=== PATIENT | female | born 1960 | race Caucasian/White ===

== ENCOUNTER 2017-05-23 08:25 | Day surgery (SDC) | payer BC, OTHER ==
[2017-05-23] MEDS ORDERED: MIDAZOLAM HCL 2MG/2ML VIAL IV ONE (14:00)
[2017-05-23] MEDS ORDERED: LIDOCAINE 2% MDV (20MG/ML) 20ML VIAL IV ONE (14:00)
[2017-05-23] MEDS ORDERED: PROPOFOL 10 MG/ML VIAL IV ONE (14:00)
--- NOTE | 2017-05-25 12:10 | Operative Note ---
DATE OF SURGERY: 05/23/2017 OPERATION: COLONOSCOPY to the cecum. INDICATION: Colorectal cancer screening. The patient has no complaints other than abdominal bloating. Her stools are regular. ANESTHESIA: Intravenous sedation was administered by the department of anesthesiology and included Diprivan titrated to effect. PROCEDURE: Following informed consent from this alert individual including a discussion of the risks and benefits of the procedure and an opportunity for the patient to ask questions, the patient was in the left lateral decubitus position. A digital rectal examination was performed. No abnormalities were noted. Following this, the Olympus [id number] video colonoscope was inserted into the rectum without resistance. The rectal mucosa had a normal appearance with normal folds and distensibility. The colonoscope was advanced up through the colon to the level of the cecum without much difficulty. Throughout the bowel the mucosa appeared normal, the folds were normal, and the bowel was fairly well distensible. The cecum was defined by noting the appendiceal orifice and ileocecal valve. From the base of the cecum, the colonoscope was then slowly withdrawn back through the bowel, reexamining the mucosa upon withdrawal. The colon preparation was good. No polyps, tumors, ulcerations, or erosions were noted. In the rectum, retroflexion was then accomplished following air insufflation and the distal rectum examined from above demonstrated small internal hemorrhoids. The endoscope was straightened and removed. The patient tolerated the procedure well and was returned to the recovery area in stable condition. IMPRESSION: Small internal hemorrhoids, otherwise unremarkable colonoscopy to the cecum. RECOMMENDATIONS: The patient was advised to have recheck colonoscopy in 10 years' time or sooner should problems arise. For abdominal bloating and gas, she can utilize Gas-X, try FODMAP diet, or try Probiotic. Followup will be with Dr. Marcin Schwartz. As always, thank you for allowing me to participate in the care of your patient. CC: Dr. Marcin WISDOM
== END 2017-05-23 11:00 | disposition home or self-care (01) ==
LOC: HOP 08:25
PROVIDERS: ATTEND Internal Medicine Gastroenterology
DX: Z12.11 Encounter for screening for malignant neoplasm of colon (principal); K64.8 Other hemorrhoids; J45.909 Unspecified asthma, uncomplicated
CPT/HCPCS: 00810; G0121

== ENCOUNTER 2017-12-30 20:41 | Observation (INO) | payer OTHER ==
--- NOTE | 2017-12-30 20:58 | Emergency Department Record ---
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 The symptoms came on suddenly and then lasted about an hour when it then slowly resolved. Her symptoms now are much improved. She does have a hx of asthma and her only cardiac risk factor is her mother with significant CAD in her 50's.. The patient did just have a neg Stress Thallium test yesterday at [facility] due to having some chest pains last summer. Additionally she did have a neg heart cath for similar issues about 8 years ago. She does have a family hx in her brothers of Afib. Complaint: Chest pain Onset/Timin -: Hour(s) Onset: During exertion Pain Location: Other Pain Radiation: None Severity scale (1-10): 7 Quality: Tightness Consistency: Constant Treatments Prior to Arrival: None - Related Data Home Medications Medication Instructions Recorded Confirmed Last Taken Beclomethasone Dipropionate [Qvar 2 inh IH BID 12/30/17 12/30/17 12/30/17 80Mcg/100 Actuat Inhaler] Trazodone HCl 50 mg PO QHS 12/30/17 12/30/17 Unknown Previous Rx's Medication Instructions Recorded Albuterol Sulfate [Ventolin Hfa] 1 - 2 puff IH .EVERY 4-6 HRS PRN 04/30/15 #1 inhaler Allergies Allergy/AdvReac Type Severity Reaction Status Date / Time dipyridamole AdvReac VOMITING Verified 12/30/17 20:46 [From Persantine] Travel Screening - Travel/Exposure Within Last 30 Days Have you traveled within the last 30 days?: No - Travel Symptoms Symptom Screening: None Review of Systems Constitutional: Denies: Chills, Fever Eyes: Denies: Eye discharge ENT: Denies: Congestion Respiratory: Denies: Cough, Dyspnea Past Medical History - SOCIAL HISTORY Smoking Status: Never smoker - RESPIRATORY Hx Respiratory Disorders: Yes Hx Asthma: Yes (well controlled) - CARDIOVASCULAR Hx Cardio Disorders: Yes Hx Chest Pain: Yes (05/2017 admission) - NEURO Hx Neuro Disorders: Yes Hx of Migraines: Yes Hx Seizures: Yes (29 yrs ago-during ) - GI Hx GI Disorders: Yes Hx Abdominal Pain: Yes (upper abd pain-occas) Hx Reflux: Yes (few yrs ago) Hx Irritable Bowel: Yes (20 yrs ago) Hx Wt Loss/Wt Gain: Yes (gain 18 lbs in 3 mos) - Hx Genitourinary Disorders: No - ENDOCRINE Hx Endocrine Disorders: No - MUSCULOSKELETAL Hx Musculoskeletal Disorders: Yes - PSYCH Hx Psych Problems: No - HEMATOLOGY/ONCOLOGY Hx Hematology/Oncology Disorders: No Family Medical History Any Significant Family History?: Yes Hx Cancer: Brother/Sister *Cancer Comment: brother-bone ca, brother-prostate ca, brother-leukemia Hx Heart Disease: Mother, Brother/Sister Hx Stroke: Mother Physical Exam - General General Appearance: Alert, Oriented x3, Cooperative, No acute distress - Head Head exam: Atraumatic, Normocephalic, Normal inspection - Eye Eye exam: Normal appearance, PERRL, EOMI - ENT Throat exam: Normal inspection. negative: Tonsillar erythema, Tonsillar exudate - Neck Neck exam: Normal inspection, Full ROM. negative: Tenderness - Respiratory Respiratory exam: Normal lung sounds bilaterally. negative: Respiratory distress - Cardiovascular Cardiovascular Exam: Regular rate, Normal rhythm, Normal heart sounds - GI/Abdominal GI/Abdominal exam: Soft, Normal bowel sounds. negative: Tenderness - Extremities Extremities exam: Normal inspection, Full ROM, Normal capillary refill. negative: Tenderness - Neurological Neurological exam: Alert. negative: Motor sensory deficit Course Vital Signs 12/30/17 20:49 Pulse Rate 78 Respiratory 14 Rate Blood Pressure 135/107 Pulse Ox 95 - Reevaluation(s) Reevaluation #1: The patient is doing very well at this time. She is resting comfortably and denies any pain or discomfort. I did review her nuclear stress test from yesterday and it was normal. 12/30/17 21:46 Reevaluation #2: The patient is doing well. I did explain to her that her tests are all WNL's. Due to the nature of the symptoms I do feel she could have gone into Afib or SVT. We will admit the patient overnight for monitoring and repeat cardiac enzymes. 12/30/17 22:07 Medical Decision Making - Data Complexity MDM Data: Labs Ordered and/or Reviewed, X-Ray Ordered and/or Reviewed, EKG Ordered and/or Reviewed - Lab Data Result diagrams: 12/30/17 21:08 12/30/17 21:08 - EKG Data -: EKG Interpreted by Me EKG: No Acute Changes, Normal EKG - Radiology Data Radiology results: Report reviewed (CXR: No acute process per rad.) Disposition Disposition: Admit Clinical Impression: Chest pain Qualifiers: Chest pain type: unspecified Qualified Code(s): R07.9 - Chest pain, unspecified Disposition: Still a Patient at [facility] Decision to Admit: Admit from ER Decision to Admit Date: 12/30/17 Decision to Admit Time: 22:09 Accepting Physician: Branodn Time Discussed w/Accepting Physician: 22:09 Condition: (2) Stable Instructions: Chest Pain (ED) Referrals: [facility] Specialty Clinics [Provider Group] Forms: Patient Portal Access Time of Disposition: 22:09 Quality - Quality Measures Quality Measures: N/A - Blood Pressure Screening View Details: Yes Does Patient Have Any of the Following: No Blood Pressure Classification: Hypertensive Reading Systolic Measurement: 135 Diastolic Measurement: 107 Screening for High Blood Pressure: < First Hypertensive BP, F/U Documented > [ G8950] First Hypertensive Follow-up Interventions: Referral to alternative/primary care provider.
[2017-12-30 21:13] LABS: BASO % 0.6 % (0-6); EOS % 6.4 % (0-6); GRAN % 54.1 % (47-80); HEMATOCRIT 40.6 % (35.0-47.0); HEMOGLOBIN 13.4 gm/dl (11.6-16.0); MEAN CELL VOLUME 90.8 fl (81-97); MEAN PLATELET VOLUME 10.2 fl (7.4-10.4); MONO % 12.9 % (0-9); PLATELET COUNT 267 K/uL (130-400); RED BLOOD COUNT 4.47 M/uL (3.80-5.40); RED CELL DISTRIBUTION WIDTH 12.7 % (11.5-14.5); WHITE BLOOD COUNT W/O DIFF 7.2 K/uL (4.2-12.2)
[2017-12-30 21:23] LABS: BLOOD UREA NITROGEN 13 mg/dL (6-20); CREATININE 0.5 mg/dL (0.5-0.9); EST GLOMERULAR FILTRATION RATE > 60 mL/min
[2017-12-30 21:26] LABS: GLUCOSE,RANDOM 110 mg/dL (74-109)
[2017-12-30 21:29] LABS: CREATINE PHOSPHOKINASE 61 U/L (26-192)
[2017-12-30 21:30] LABS: CKMB 1.3 ng/mL (<3.77)
[2017-12-30] MEDS ORDERED: TRAZODONE 50 MG TABLET PO SCH (22:00)
[2017-12-30] MEDS ORDERED: ASPIRIN 325 MG TABLET PO ONE (22:09)
[2017-12-30] MEDS ORDERED: ALBUTEROL HFA 8 GM INHALER INH PRN (22:19)
[2017-12-30] MEDS ORDERED: ACETAMINOPHEN 325 MG TAB PO PRN (22:47)
[2017-12-30] MEDS ORDERED: ZOLPIDEM TARTRATE 5 MG TABLET PO PRN (22:49)
[2017-12-31 03:58] LABS: CKMB 1.1 ng/mL (<3.77)
[2017-12-31] MEDS ORDERED: ARNUITY (FLUTICASONE FUROATE) 100MCG INH INH SCH (10:00)
[2017-12-31] MEDS ORDERED: ASPIRIN 325 MG TAB ENTERIC-COATED PO SCH (10:00)
--- NOTE | 2017-12-31 11:15 | History & Physical ---
History of Present Illness - Date of Service Date of Service for History & Physical: 12/31/17 - History of Present Illness Admitting Diagnosis: 1. Chest Pain, R/O Mi. History of Present Illness: Mrs. Siu is a 57 year-old female who presented to the ED on 12/30/17 with c/o developing palpitations and chest discomfort with mild SOB about 3 hours prior while working at a [employer]. The symptoms came on suddenly and then lasted about an hour when it then slowly resolved. Her symptoms were much improved upon presenting to the ED. She does have a hx of asthma and her only cardiac risk factor is her mother with significant CAD in her 50's. The patient did just have a neg Stress Thallium test on 12/29/17 at [facility] due to having some chest pains last summer. Additionally, she did have a neg heart cath for similar issues about 8 years ago. She does have a family hx in her brothers of Afib. In the ED, her vital signs were stable. EKG showed normal sinus rhythm and was negative for any acute ST changes. Her chest x-ray was negative for acute process. CBC and CMP were unremarkable. Nuclear stress test was reviewed by Dr. Delvalle. D-dimer was wnl, CK-MB and troponins were negative for elevation. Based on pt's symptomss, she could have gone into Afib or SVT and she was admitted for observation with cardiac monitoring and repeat cardiac enzymes. 12/31/17 1100: Pt. is sitting up in bed and resting comfortable. She denies any chest pain and palpitations and she is in no distress. She states that she has not experienced any palpitations, SOB, or chest discomfort since prior to coming to the ED. Will plan to monitor last set of serial cardiac enzymes and discharge home if labs are normal and if pt remains in NSR on potline monitor. She should f/u with her PCP within 3-5 days and consider holter monitor outpatient. Travel Screening - Travel/Exposure Within Last 30 Days Have you traveled within the last 30 days?: No - Travel/Exposure Within Last Year Have you traveled outside the [place] in the last year?: No - Additonal Travel Details Have you been exposed to anyone with a communicable illness?: No - Travel Symptoms Symptom Screening: None Review of Systems Constitutional: Denies: Chills, Fever Eyes: Denies: Eye discharge ENT: Denies: Congestion Respiratory: Denies: Cough, Dyspnea Cardiovascular: Reports: As per HPI. Denies: Arrhythmia, Chest pain, Dyspnea on exertion, Edema, Murmurs, Orthopnea, Palpitations, Paroxysmal nocturnal dyspnea, Rheumatic Fever, Syncope Endocrine: Reports: As per HPI. Denies: Fatigue, Heat or cold intolerance, Polydipsia, Polyuria Gastrointestinal: Reports: As per HPI. Denies: Abdominal pain, Constipation, Diarrhea, Hematemesis, Hematochezia, Melena, Nausea, Vomiting Genitourinary: Reports: As per HPI. Denies: Abnormal menses, Discharge, Dyspareunia, Dysuria, Frequency, Hematuria, Incontinence, Retention, Urgency Musculoskeletal: Reports: As per HPI. Denies: Arthralgia, Back pain, Gout, Joint swelling, Myalgia, Neck pain Skin: Reports: As per HPI. Denies: Bruising, Change in color, Change in hair/ nails, Lesions, Pruritus, Rash Neurological: Reports: As per HPI. Denies: Abnormal gait, Confusion, Headache, Numbness, Paresthesias, Seizure, Tingling, Tremors, Vertigo, Weakness Psychiatric: Reports: As per HPI. Denies: Anxiety, Auditory hallucinations, Depression, Homicidal thoughts, Suicidal thoughts, Visual hallucinations Hematological/Lymphatic: Reports: As per HPI. Denies: Anemia, Blood Clots, Easy bleeding, Easy bruising, Swollen glands Past Medical History - SOCIAL HISTORY Smoking Status: Never smoker - RESPIRATORY Hx Respiratory Disorders: Yes Hx Asthma: Yes (well controlled) - CARDIOVASCULAR Hx Cardio Disorders: Yes Hx Chest Pain: Yes (05/2017 admission) - NEURO Hx Neuro Disorders: Yes Hx of Migraines: Yes Hx Seizures: Yes (29 yrs ago-during ) - GI Hx GI Disorders: Yes Hx Abdominal Pain: Yes (upper abd pain-occas) Hx Reflux: Yes (few yrs ago) Hx Irritable Bowel: Yes (20 yrs ago) Hx Wt Loss/Wt Gain: Yes (gain 18 lbs in 3 mos) - Hx Genitourinary Disorders: No - ENDOCRINE Hx Endocrine Disorders: No - MUSCULOSKELETAL Hx Musculoskeletal Disorders: Yes - PSYCH Hx Psych Problems: No - HEMATOLOGY/ONCOLOGY Hx Hematology/Oncology Disorders: No Family Medical History Any Significant Family History?: Yes Hx Cancer: Brother/Sister *Cancer Comment: brother-bone ca, brother-prostate ca, brother-leukemia Hx Heart Disease: Mother, Brother/Sister Hx Stroke: Mother H&P Meds/Allergies - Allergies Allergies: Allergies Allergy/AdvReac Type Severity Reaction Status Date / Time dipyridamole AdvReac VOMITING Verified 12/30/17 20:46 [From Persantine] - Home Medications Home Medications Medication Instructions Recorded Confirmed Last Taken Beclomethasone Dipropionate [Qvar 2 inh IH BID 12/30/17 12/30/17 12/30/17 80Mcg/100 Actuat Inhaler] Trazodone HCl 50 mg PO QHS 12/30/17 12/30/17 Unknown Previous Rx's Medication Instructions Recorded Albuterol Sulfate [Ventolin Hfa] 1 - 2 puff IH .EVERY 4-6 HRS PRN 04/30/15 #1 inhaler - Active Medications Active Medications: Current Medications Acetaminophen (Tylenol 325mg) 650 mg PO Q6H PRN PRN Reason: PAIN/TEMP Albuterol Sulfate (Ventolin Hfa) 1 - 2 puff INH RESP.Q4H PRN PRN Reason: COUGH/WHEEZING Aspirin (Ecotrin (Ec)) 325 mg PO DAILY [facility] Last Admin: 12/31/17 09:55 Dose: 325 mg Trazodone HCl (Desyrel) 50 mg PO QHS [facility] Last Admin: 12/30/17 23:03 Dose: 50 mg Zolpidem Tartrate (Ambien) 10 mg PO QHS PRN PRN Reason: INSOMNIA Physical Exam - Vital Signs Vital Signs: Vital Signs - Last 24 Hrs Temp Pulse Pulse Resp BP Pulse Ox 12/31/17 08:00 97.9 F 89 18 118/72 98 12/31/17 04:19 97.7 F 61 18 111/81 97 12/30/17 22:50 70 18 12/30/17 22:30 97.6 F 70 18 117/75 99 - General General Appearance: Alert, Oriented x3, Cooperative, No acute distress Limitations: No limitations - Head Head exam: Atraumatic, Normocephalic, Normal inspection - Eye Eye exam: Normal appearance, PERRL, EOMI - ENT Throat exam: Normal inspection. negative: Tonsillar erythema, Tonsillar exudate - Neck Neck exam: Normal inspection, Full ROM. negative: Tenderness - Respiratory Respiratory exam: Normal lung sounds bilaterally. negative: Respiratory distress - Cardiovascular Cardiovascular Exam: Regular rate, Normal rhythm, Normal heart sounds - GI/Abdominal GI/Abdominal exam: Soft, Normal bowel sounds. negative: Tenderness - Extremities Extremities exam: Normal inspection, Full ROM, Normal capillary refill. negative: Tenderness - Neurological Neurological exam: Alert. negative: Motor sensory deficit Results - Labs Result Diagrams: 12/30/17 21:08 12/30/17 21:08 Labs Last 24 Hours: Laboratory Results - last 24 hr 12/31/17 02:15 CK-MB (CK-2) 1.1 Troponin T < 0.010 - Imaging and Cardiology Chest x-ray Status: Image reviewed VTE H&P Assessment - Risk for VTE Risk for VTE: Yes Risk Level: Very Low Risk Assessment Date: 12/31/17 Risk Assessment Time: 11:16 VTE Orders Placed or Will Be Placed: No VTE Reason for No Prophylaxis: Not Indicated (Mobility not impaired, plan to d/ c home this afternoon) Plan - Detailed Diagnosis and Plan (1) Heart palpitations Current Visit: Yes Status: Acute Base Code: R00.2 - PALPITATIONS Comment: Pt. presented to the ED on 12/30/17 after experiencing palpitations and chest discomfort with mild SOB while working. Symptoms lasted about 1 hour and resolved prior to presenting to the ED. EKG, CXR, cardiac enzymes all negative. Adm for obs for cardiac monitoring and cardiac enzymes. CK-MB and troponins have remained unchanged. Pt. denies experiencing any chest pain, palpitations, or shortness of breath during ED stay and admission. Will plan to discharge after final set of enzymes result. (2) Chest discomfort Current Visit: Yes Status: Acute Base Code: R07.89 - OTHER CHEST PAIN Comment: Pt. presented to the ED on 12/30/17 after experiencing palpitations and chest discomfort with mild SOB while working. Symptoms lasted about 1 hour and resolved prior to presenting to the ED. EKG, CXR, cardiac enzymes all negative. Adm for obs for cardiac monitoring and cardiac enzymes. CK-MB and troponins have remained unchanged. Pt. denies experiencing any chest pain, palpitations, or shortness of breath during ED stay and admission. Will plan to discharge after final set of enzymes result. (3) Full code status Current Visit: Yes Status: Acute Base Code: Z78.9 - OTHER SPECIFIED HEALTH STATUS Comment: Pt. is full code status
[2017-12-31 11:19] LABS: CKMB 1.1 ng/mL (<3.77)
--- NOTE | 2017-12-31 11:29 | Discharge Summary ---
Providers Discharge Summary Date: 12/31/17 Date of admission: 12/30/17 22:24 Expected Date of Discharge: 12/31/17 Attending physician: ATUL CARO Primary care physician: SACHA BOSS M.D. Physical Exam - Vital Signs Vital Signs: Vital Signs - Last 24 Hrs Temp Pulse Pulse Resp BP Pulse Ox 12/31/17 08:00 97.9 F 89 18 118/72 98 12/31/17 04:19 97.7 F 61 18 111/81 97 12/30/17 22:50 70 18 12/30/17 22:30 97.6 F 70 18 117/75 99 - General General Appearance: Alert, Oriented x3, Cooperative, No acute distress Limitations: No limitations - Head Head exam: Atraumatic, Normocephalic, Normal inspection - Eye Eye exam: Normal appearance, PERRL, EOMI - ENT Throat exam: Normal inspection. negative: Tonsillar erythema, Tonsillar exudate - Neck Neck exam: Normal inspection, Full ROM. negative: Tenderness - Respiratory Respiratory exam: Normal lung sounds bilaterally. negative: Respiratory distress - Cardiovascular Cardiovascular Exam: Regular rate, Normal rhythm, Normal heart sounds - GI/Abdominal GI/Abdominal exam: Soft, Normal bowel sounds. negative: Tenderness - Extremities Extremities exam: Normal inspection, Full ROM, Normal capillary refill. negative: Tenderness - Neurological Neurological exam: Alert. negative: Motor sensory deficit Hospitalization - Hospitalization Admission Diagnosis: 1. Chest Pain, R/O Mi. - Problem List/Discharge Diagnosis (1) Heart palpitations Current Visit: Yes Status: Acute Base Code: R00.2 - PALPITATIONS Comment: Pt. presented to the ED on 12/30/17 after experiencing palpitations and chest discomfort with mild SOB while working. Symptoms lasted about 1 hour and resolved prior to presenting to the ED. EKG, CXR, cardiac enzymes all negative. Adm for obs for cardiac monitoring and cardiac enzymes. CK-MB and troponins have remained unchanged. Pt. denies experiencing any chest pain, palpitations, or shortness of breath during ED stay and admission. Final set of enzymes resulted and remain negative for any change or elevation. Will discharge home. (2) Chest discomfort Current Visit: Yes Status: Acute Base Code: R07.89 - OTHER CHEST PAIN Comment: Pt. presented to the ED on 12/30/17 after experiencing palpitations and chest discomfort with mild SOB while working. Symptoms lasted about 1 hour and resolved prior to presenting to the ED. EKG, CXR, cardiac enzymes all negative. Adm for obs for cardiac monitoring and cardiac enzymes. CK-MB and troponins have remained unchanged. Pt. denies experiencing any chest pain, palpitations, or shortness of breath during ED stay and admission. Final set of enzymes remain unchanged, will dishcarge home. (3) Full code status Current Visit: Yes Status: Acute Base Code: Z78.9 - OTHER SPECIFIED HEALTH STATUS Comment: Pt. is full code status - Hospitalization Course Disposition: Home, Self-Care Hospital Course: Mrs. 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 The symptoms came on suddenly and then lasted about an hour when it then slowly resolved. Her symptoms were much improved upon presenting to the ED. She does have a hx of asthma and her only cardiac risk factor is her mother with significant CAD in her 50's. The patient did just have a neg Stress Thallium test on 12/29/17 at [facility] due to having some chest pains last summer. Additionally, she did have a neg heart cath for similar issues about 8 years ago. She does have a family hx in her brothers of Afib. In the ED, her vital signs were stable. EKG showed normal sinus rhythm and was negative for any acute ST changes. Her chest x-ray was negative for acute process. CBC and CMP were unremarkable. Nuclear stress test was reviewed by Dr. Delvalle. D-dimer was wnl, CK-MB and troponins were negative for elevation. Based on pt's symptomss, she could have gone into Afib or SVT and she was admitted for observation with cardiac monitoring and repeat cardiac enzymes. 12/31/17 1100: Pt. is sitting up in bed and resting comfortable. She denies any chest pain and palpitations and she is in no distress. She states that she has not experienced any palpitations, SOB, or chest discomfort since prior to coming to the ED. Will plan to monitor last set of serial cardiac enzymes and discharge home if labs are normal and if pt remains in NSR on cafeteria monitor. She should f/u with her PCP within 3-5 days and consider holter monitor outpatient. Condition at Discharge: (2) Stable Discharge Diagnosis: Palpitations, chest discomfort\ VTE Discharge VTE Reason For No Overlap Therapy: Not Indicated (Mobility not impaired) Discharge Medications - Discharge Medications Home Medications: Ambulatory Orders Albuterol Sulfate [Ventolin Hfa] 1 - 2 puff IH .EVERY 4-6 HRS PRN #1 inhaler 06/07 [Last Taken Unknown] Zolpidem Tartrate [Ambien] 10 mg PO QHS PRN 06/20/15 [Last Taken Unknown] Beclomethasone Dipropionate [Qvar 80Mcg/100 Actuat Inhaler] 2 inh IH BID [Last Taken 12/30/17] Trazodone HCl 50 mg PO QHS 12/30/17 [Last Taken Unknown] Discharge Plan - Discharge Instructions Activity at Discharge: Resume Usual Activities As Tolerated Diet at Discharge: Regular Diet Instructions: Chest Pain (ED) Additional Instructions: Follow up with your PCP within 3-5 days, consider holter monitor for symptom of palpitations Return to the ED if you experience any chest pain, shortness of breath, severe headache, dizziness, acute change in vision Quality Measures - Quality Measures Quality Measures: Documentation of Current Medications in Medical Record, Screening for High Blood Pressure and F/U Documented - Current Medications Quality Measure: Measure #130: Documentation of Current Medications Documentation of Current Medications: <Current Medications Documented/Reviewed> [G8427] - Blood Pressure Screening Quality Measure: Screening for High Blood Pressure and Follow-Up Documented Does Patient Have Any of the Following: No Blood Pressure Classification: Hypertensive Reading Systolic Measurement: 135 Diastolic Measurement: 107 Screening for High Blood Pressure: < Pre-Hypertensive BP, F/U Documented > [ G8950] Pre-Hypertensive Follow-up Interventions: Follow-up with rescreen every year. - Elder Abuse Suspicion Index EASI Reference Information: Lucia HEAD, Heladio C, Srinivas D, Uyen M.Development and validation of a tool to assist physicians identification of elder abuse: The Elder Abuse Suspicion Index (EASI ). Journal of Elder Abuse and Neglect, 2008; 20 (3): 276-300.
--- NOTE | 2018-01-01 21:29 | RADIOLOGY REPORT ---
EXAM: CHEST 2 VIEWS COMPARISON: 06/20/15. HISTORY: CHEST PAIN. TECHNIQUE: Chest, two views. FINDINGS: Telemetry leads overlie the chest. Cardiomediastinal silhouette is stable. Lungs and pleural spaces are clear. IMPRESSION: NO ACUTE CARDIOPULMONARY ABNORMALITY. JOB NUMBER: [id number]
== END 2017-12-31 13:09 | disposition home or self-care (01) ==
LOC: ER 20:41 → MEDSURG 22:24
PROVIDERS: ADMIT Internal Medicine; ATTEND Internal Medicine
DX: R07.89 Other chest pain (principal); J45.909 Unspecified asthma, uncomplicated
CPT/HCPCS: 99285 ×2; 82550; 85025; 82553 ×2; 80048; 84484 ×2; 85379; 71046; 93005 ×2; 93010; G0378 ×2; 99220